=== PATIENT | female | born 1975 | race Caucasian/White ===

== ENCOUNTER 2023-11-22 06:56 | Outpatient (CLI) | payer BC, SELFPAY ==
--- NOTE | 2023-11-22 07:15 | CRLHL7_ITS ---
For Patients: As a result of the Century Cures Act, medical imaging exams and procedure reports are released immediately into your electronic medical record. You may view this report before your referring provider. If you have questions, please contact your health care provider. INDICATION: MENORRHAGIA COMPARISON: 06/29/2016 TECHNIQUE: 2D clark scale and color Doppler images were acquired of the pelvis using a transabdominal and transvaginal approach. FINDINGS: Sonographic images demonstrate a normal size and smooth outer contour of the uterus. Uterus measures 11.6 cm in length by 6.9 cm in AP diameter by 8.3 cm in transverse dimension. The myometrium has a heterogeneous echotexture. The endometrial lining appears abnormal in morphology with lobular margins and measures 20 mm in composite thickness. The right ovary measures 1.9 x 1.3 x 1.6 cm in size and the left ovary measures 3.3 x 1.7 x 2.1 cm. The ovaries demonstrate normal arterial and venous blood flow on color Doppler analysis. There are no suspicious fluid collections within the cul-de-sac. IMPRESSION: Thickened and heterogeneous endometrium with abnormal morphology including a multilobular appearance, measuring up to 2 cm. Dictated by Valeriano Magallon MD @ 11/22/2023 8:43:11 AM (Electronically Signed)
== END 2023-11-22 06:57 | disposition home or self-care (01) ==
LOC: US 06:58
PROVIDERS: Visit Provider Obstetrics & Gynecology
DX: N92.0 Excessive and frequent menstruation with regular cycle (principal); R93.89 Abnormal findings on diagnostic imaging of other specified body structures
CPT/HCPCS: 76830; 76856

== ENCOUNTER 2024-02-01 07:37 | Day surgery (SDC) | payer BC, SELFPAY ==
[2024-02-01] VITALS (18 sets, daily range): BP systolic 109–137; BP diastolic 71–87; PULSE 62–96; RESP 14–18; TEMP 36.3–37.5; O2SAT 91–99; BMI 34.9
[2024-02-01] MEDS: LACTATED RINGERS 1000 ML 1,000 ML 100 ML IV ×3 (08:05→12:03)
[2024-02-01] MEDS: SODIUM CHLORIDE 0.9 % (FLUSH) 10 ML SYRINGE IVF (08:05)
[2024-02-01 08:18] LABS: Ur HCG Qualitative* Negative (Negative)
--- NOTE | 2024-02-01 08:26 | PM.PROC ---
Procedure Note Time Seen by Provider: 12:18 Date Seen: 02/01/24 Date of procedure: 02/01/24 Will [facility] bill your pro fee for this procedure?: Yes Procedure: Preoperative diagnosis: 48-year-old 0 para 0 with menorrhagia Postoperative diagnosis: Same Procedure: Total laparoscopic hysterectomy, diagnostic cystoscopy. Anesthesia: General endotracheal, local Surgeon: Marylou Muhammad MD Assist: Annita Avendano MD Estimated blood loss: 150 mL. IV Fluid: 2300 mL Urine output: 300 mL, clear urine at the end of the procedure Drains: Polanco to gravity Specimen: Uterus to pathology. Uterus weighed 328 g in the operating room Findings: On exam under anesthesia: The uterus was mid position, approximately 12 week size, mobile without nodularity or masses palpable. Adnexa without mass or fullness palpable. On laparoscopy: Globular uterus with posterior, intramural fibroid. Appendix surgically absent with some adhesions in the right lower quadrant of the omentum to the anterior abdominal wall. Liver and gallbladder all appeared normal. Procedure: Taylor was taken to the operating room where general anesthetic was found to be adequate. She was placed in the dorsal lithotomy position and an exam under anesthesia was performed with findings stated above. She was then prepped and draped in a normal sterile manner. A Polanco catheter was placed. A bivalve speculum was placed in the vaginal canal. A long Allis clamp was placed on the anterior lip of the cervix, in the uterus sounded to 8 cm. A large VCare uterine manipulator was then placed. The Allis clamp and speculum were removed from the cervix. Attention was then turned to performing the laparoscopic portion of the procedure. All incisions were infiltrated with 0.5% Marcaine prior to incising the skin. A vertical, infraumbilical 1 cm incision was made. An 11 mm trocar was then placed under direct visualization. The abdomen was then insufflated with CO2 gas to a pressure of 15 mm of mercury. Two, pelvic ports were then placed approximately 3-4 finger breaths medial to the ischial crests. The trocar in the RLQ = 5mm, LLQ = 11mm. These were placed under direct visualization. Attention was then turned to performing the hysterectomy. The left side of the hysterectomy was performed using the PowerSeal dissecting forceps. The 1st pedicles were starting with the broad ligament that was cauterized and and bisected. In sequence show pedicles were formed to divide the utero-ovarian ligament. Then sequential pedicles were made through the broad ligament. The posterior leaf of the broad ligament was then divided and sequential pedicles carried down to the level of the VCare cup. The anterior leaf of the broad ligament was then divided down to the level of the anterior aspect of the VCare cup and a bladder flap created. The uterine vessels were then skeletonized. The uterine vessels were then cauterized and divided. Then excess tissue was cleared over the top of the VCare cup using the dissecting forceps. The right side of the hysterectomy were then performed in a similar manner. The Ligasure Valleylab pen with the spatula attachment was then used to perform the colpotomy incising around the VCare cup. The uterus was removed via morcellation through the vaginal canal. A glove with 1 lap was placed within the vaginal canal to maintain insufflation. The vaginal cuff was then reapproximated using 2-0 V lock suture in a running manner. All the pedicles and vaginal cuff were then closely visualized and hemostasis obtained with bipolar cautery using the PowerSeal dissecting forceps or the WorkThinklab pen with the spatula. The the uterus was removed from the vaginal canal and sent to pathology. The Polanco catheter was briefly removed. A diagnostic cystoscopy was performed using normal saline as the insufflation medium. The dome of the bladder was noted to be without injury and no evidence of any sutures from the vaginal cuff causing injury. Normal urine flow was noted through both ureteral orifices. Fluorescein IV was used to visualize the urine more easily. The Polanco catheter was then replaced. Attention was then returned to the abdomen where hemostasis was verified. The CO2 pressure decreased to 8mmHG and hemostasis verified. The fascia in the LLQ incision was approximated with 0-Vicryl suture using the Tab Thomasen fascial closure device. This was closed under direct visualization with the laparoscope. The fascia in the umbilical incision was reapproximated using 0 Vicryl on a UR 6 needle. All trocars were removed under direct visualization. CO2 gas was allowed to escape the infraumbilical port prior to its removal. All skin incisions were re-approximated using 4-0 Monocryl in a running subcuticular manner, Exofin skin adhesive gel and adhesive bandages placed. The patient tolerated this procedure well. Sponge, lap and instrument counts were correct x2 at the end of the procedure and the patient was taken to the recovery area in stable condition. The patient received 2 gm IV ancef prior to the start of the procedure. Anesthesia: GETA and local Processor Helper: Annita Avendano Estimated blood loss (mL): 150 IV fluids (mL): 2,300 Urine output (mL): 300 Pathology: specimen obtained, sent to pathology Condition: stable Disposition: floor
[2024-02-01 08:27] LABS: Hemoglobin* 14.1 gm/dL (12.0-16.0)
[2024-02-01] MEDS: SCOPOLAMINE 1 MG/3 DAY PATCH 1 PATCH TRANSDERMA (08:38)
[2024-02-01] MEDS: CEFAZOLIN 1 GM inj 3 GM IVP (09:45)
[2024-02-01] MEDS: BUPIVACAINE 0.5% 30 ML INJECTION (10:11)
[2024-02-01] MEDS: METOCLOPRAMIDE HCL 5 MG/ML INJ 10 MG IVP (12:35)
--- NOTE | 2024-02-01 12:46 | W.ANESCHARGE ---
Anesthesia Charges Start Date/Time Anesthesia Start Date: 02/01/24 Anesthesia Start Time: 09:28 Stop Date/Time Anesthesia Stop Date: 02/01/24 Anesthesia Stop Time: 10:38
[2024-02-01] MEDS: MEPERIDINE 25 MG/ML INJ 12.5 MG IVP (12:51)
[2024-02-01] MEDS: LACTATED RINGERS 1000 ML 1,000 ML 125 ML IV ×2 (13:35→16:26)
[2024-02-01] MEDS: ONDANSETRON 2 MG/ML inj 4 MG IVP (14:30)
--- NOTE | 2024-02-01 15:12 | PC.NURSE ---
End of shift: Pt arrived to floor from PACU @ 1300. VSS and afebrile. She is A&O x4 and denies having any pain, however reports abdominal tightness with movement. Lap sites x3 TYLER and clean, dry. Polanco catheter in place draining clear, green/blue urine. Pt maintaining on RA. Scop patch intact behind left ear. Pt had increased nausea during recovery & IV Zofran given @ 1430. She has only tolerated water thus far. PIV in right hand is C/D/I and infusing LR @ 125 mL/hr. Bilat SCD?s in place. , Becki, at bedside. ?
[2024-02-01] MEDS: ACETAMINOPHEN 500 MG TABLET 1000 MG PO ×2 (16:23→21:40)
[2024-02-01] MEDS: KETOROLAC 30 MG/ML inj IVP (18:40)
[2024-02-01] MEDS: HYDROmorphone 2 MG TABLET PO (18:40)
--- NOTE | 2024-02-01 23:48 | PC.NURSE ---
Patient pleasant, alert and oriented. Tolerating regular diet. Good fluid intake. IV saline locked. Ambulated in hallway with stand by assist. Total urine output in aparicio 1500ml. Aparicio catheter discontinued at 1930. Scant amount of blood in pad since that time. Patient has not urinated since aparicio discontinued. PRN Tylenol given for temp of 99.1. Rates pain in abdomen 2-04/10. Given PRN Dilaudid.?
[2024-02-02 00:16] VITALS: BP 108/61; PULSE 85; RESP 16; TEMP 37.2; O2SAT 96
[2024-02-02] MEDS: HYDROmorphone 2 MG TABLET PO ×2 (00:23→09:04)
[2024-02-02] MEDS: KETOROLAC 30 MG/ML inj IVP (00:23)
[2024-02-02 00:37] VITALS: RESP 16; O2SAT 96
[2024-02-02 03:24] VITALS: BP 100/69; PULSE 77; RESP 16; TEMP 37; O2SAT 97
--- NOTE | 2024-02-02 07:30 | PC.NURSE ---
End of shift [id number]: A&O pleasant and cooperative. VSS, afebrile. Rating pain 3-6/10. See eMAR for interventions. Ambulated in halls x2 overnight. Adequate PO intake overnight. Pt was able to void. Lap sites open to air w/out any drainage. scant blood on pad overnight. BS active and reports passing gas.
[2024-02-02 08:30] VITALS: O2SAT 99
--- NOTE | 2024-02-02 08:51 | P.DS_ITS ---
DS: Providers Provider Time Seen by Provider: 08:20 Date Seen: 02/02/24 Primary care physician: Not a Local Provider Attending Physician on discharge: Jorge Avendano MD BOTTOM BLEACHER-Discharge Summary Hospital Course Hospital Course Narrative: Patient is a 48 year old admitted on 02/01/2024 for postoperative cares following total laparoscopic hysterectomy and diagnostic cystoscopy. Indication for surgery: Abnormal uterine bleeding. Intraoperative findings were notable for fibroid uterus, unremarkable ovaries, negative diagnostic cystoscopy. Please see Dr. Muhammad's operative note for complete details. She had an uncomplicated surgery. Postoperative course has been uneventful. She did have intermittent urinary retention, resolved with time voiding overnight. Vitals have been stable. She has remained afebrile. Today, on postoperative day 1, she reports the pain is well controlled with NSAIDs, Tylenol and p.o. Dilaudid as needed. She has been able to ambulate Without difficulty. She is tolerating regular diet without nausea or vomiting. She is passing flatus. Polanco catheter has been removed, and she is voiding without difficulty. Minimal vaginal bleeding, described as spotting. Time Spent with Patient Time attestation: Total time spent providing and/or coordinating discharge services: Time spent: Less than 30 minutes BOTTOM BLEACHER - Exam Physical Exam: Vital signs: Temp Pulse Resp BP Pulse Ox O2 Del Method 98.6 F 77 16 100/69 97 Room Air 02/02/24 03:24 02/02/24 03:24 02/02/24 03:24 02/02/24 03:24 02/02/24 03:24 02/02/24 03:24 Narrative: General: Alert and oriented, in no acute distress Psych: Appropriate mood and affect Abdomen: Soft, nondistended. Mildly tender to palpation greatest of the left lower quadrant, consistent with postoperative state. No rebound or guarding. Incisions are well approximated, clean/dry with overlying surgical glue. No peripheral erythema or ecchymosis noted. BOTTOM BLEACHER - DS: Data Data Completed and Pending Labs on day of discharge: Labs from last 24 hours 02/01/24 08:00 Blood Type A Positive Antibody Screen NEGATIVE Procedures Procedures: Procedures Operation Date: 02/01/24 09:15 Actual Procedure Side Surgeon p Total Laparoscopic Hysterectomy, Diagnostic Cystoscopy Marylou Muhammad MD Discharge Plan Discharge Disposition: Home w/ Parent or Adult Discharging Surgeon: Annita Avendano Follow-Up Appointment: With Dr. Muhammad in 2 weeks and 6 weeks Prescriptions: New hydromorphone 2 mg Tablet 2 mg PO 3XD PRNQty: 21 0RF docusate sodium 100 mg Capsule 100 mg PO BID PRN (Reason: Constipation) Qty: 100 0RF ibuprofen 600 mg tablet 600 mg PO QID PRNQty: 30 0RF Continued omalizumab 150 mg recon soln 150 mg subcut Q4W hydroxyzine HCl 10 mg tablet 10 mg PO TID-QID PRN cetirizine [Zyrtec] 10 mg tablet 10 mg PO QDAY PRN multivitamin Tablet 1 tab PO QAM biotin 1 mg capsule 1 mg PO QDAY cephalexin 500 mg capsule 500 mg PO QID 10 Days Qty: 40 6RF Wegovy 2.4 mg/0.75 mL pen injector 2.4 mg subcut QWEEK Discontinued medroxyprogesterone 10 mg tablet 10 mg PO QDAY Qty: 90 1RF peg 3350-electrolytes [Golytely] 236-22.74-6.74 -5.86 gram recon soln 240 ml PO Q10M Qty: 4000 0RF Rx Instructions: until fecal effluent is clear No Action medroxyprogesterone 10 mg tablet 10 mg PO DAILY Discharge Diet: Regular Additional Instructions: ACTIVITY RESTRICTIONS: Nothing vaginally for 6 weeks: no tampons/intercourse No driving while taking narcotic pain medication during the day. 1-2 weeks. Lifting restriction: Maximum of 20 pounds for 2-3 weeks. High impact or core exercises: 3 weeks. Submerge the incisions in water (bath/pool/san): 2 weeks. Off of work/school for 2-4 weeks NO RESTRICTIONS for: Walking Going up/down stairs Showering Being a passenger in a motorized vehicle SYMPTOMS TO REPORT TO YOUR DOCTOR: Bleeding that is red, like a moderate period Pain not relieved by prescribed medication Fever above 100.4 degrees Fahrenheit A foul vaginal odor Decrease in urination or painful, frequent urinating Chest pain Shortness of breath Tenderness or pain with redness and/swelling in the calf(s) of your leg FOLLOW-UP APPOINTMENTS: 1. [facility] 2-3 [facility] for an incision check. 2. A 6 week postop visit to verify that the vaginal cuff is well-healed. Follow-up: Marylou Muhammad MD [Staff Physician] - Provider,Not a Local [Primary Care Provider] - Discharge Orders: Discharge Order (Routine); Ordered 02/02/24 Ordered By: Annita Avendano
[2024-02-02 09:00] VITALS: BP 120/89; PULSE 72; RESP 16; TEMP 37.1; O2SAT 99
[2024-02-02] MEDS: ACETAMINOPHEN 500 MG TABLET 1000 MG PO (09:04)
[2024-02-02] MEDS: SIMETHICONE 80 MG TAB.CHEW 160 MG PO (09:22)
--- NOTE | 2024-02-02 12:39 | PC.NURSE ---
The patient discharged home with her this AM reported moderate abdominal pain/ gas pain. PRN Dilaudid and tylenol given this AM. PRN Simethicone was given as well. Voiding with no issues. Scop patch behind L ear educated the patient to take it off with gloves and then wash her hands. ALL discharge instructions were provided and reviewed with the patient. Vashti WATTS BSN
== END 2024-02-02 11:17 | disposition home or self-care (01) ==
LOC: OR 07:38 → MEDSURG 07:40
PROVIDERS: Nurse Anesthetist, Certified Registered; Visit Provider Obstetrics & Gynecology
PROC: 0UT94ZZ Resection of Uterus, Percutaneous Endoscopic Approach (ICD-10-PCS; CPT 58572; principal; 2024-02-01 09:00)
DX: N92.0 Excessive and frequent menstruation with regular cycle (principal); D25.9 Leiomyoma of uterus, unspecified
CPT/HCPCS: 58572; 00840; 36415; 51798; 81025; 85018; 86850; 86900; 86901; 88307; A9270; J0330; J0665; J0690; J1100; J1170; J1885; J2175; J2250; J2405; J2704; J2710; J2765; J3010; J7120